=== PATIENT | male | born 1970 | race Caucasian/White ===

== ENCOUNTER 2024-10-24 09:24 | Emergency (ER) | payer OTHER, SELFPAY ==
[2024-10-24] VITALS (13 sets, daily range): BP systolic 113–150; BP diastolic 55–71; PULSE 56–100; RESP 13–23; TEMP 36.6–37.1; O2SAT 96–100; BMI 33.3
--- NOTE | 2024-10-24 09:41 | EKG_ITS ---
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
[2024-10-24 10:04] LABS: Add Manual Diff / Slide Review NO; Basophils Absolute Auto 0 /uL (0-100); Basophils Percent Auto 0.7 % (0-2); Eosinophils Absolute Auto 400 /uL (0-450); Eosinophils Percent Auto 8.7 % (2-4); Hematocrit 46.9 % (41-53); Hemoglobin 15.9 g/dL (13.5-17.5); Lymphocytes Absolute Auto 1400 /uL (1100-4500); Lymphocytes Percent Auto 28.8 % (25-40); Mean Corpuscular Volume 91.2 fL (80-100); Monocytes Absolute Auto 400 /uL (0-900); Monocytes Percent Auto 8.1 % (3-14); Neutrophils Absolute Auto 2700 /uL (1500-7000); Neutrophils Percent Auto 53.7 % (50-75); Platelet Count 288 X10^3/uL (150-400); Red Blood Cell Count 5.14 X10^6/uL (4.5-5.9); Red Cell Distribution Width 13.7 % (11.6-14.8)
[2024-10-24 10:14] LABS: Alanine Aminotransferase 38 IU/L (<50); Albumin 4.4 g/dL (3.5-5.0); Albumin Globulin Ratio 1.8 (1.0-2.8); Alkaline Phosphatase 72 U/L (38-126); Aspartate Aminotransferase 42 IU/L (17-59); BUN Creatinine Ratio 24.1 (6-22); Bilirubin Total 0.8 mg/dL (0.2-1.3); Blood Urea Nitrogen 19 mg/dL (9-20); Calcium 9.1 mg/dL (8.4-10.2); Carbon Dioxide 22 mmol/L (22-32); Chloride 105 mmol/L (98-107); Estimated Glomerular Filt Rate > 60 mL/min (>60); Globulin 2.5 g/dL (1.7-4.1); Glucose 121 mg/dL (70-100); HEMOLYSIS 42 (0-50); Lipase 145 U/L (23-300); Potassium 4.2 mmol/L (3.4-5.1); Sodium 138 mmol/L (137-145); Total Protein 6.9 g/dL (6.3-8.2)
--- NOTE | 2024-10-24 12:32 | ED.ABDPAIN ---
HPI - Abdominal Pain General Chief Complaint: Abdominal Pain Stated Complaint: Lower left stomach pain Time Seen by Provider: 10/24/24 12:32 Source: patient, RN notes reviewed and old records reviewed Mode of arrival: Ambulatory Limitations: no limitations History of Present Illness HPI narrative: 54-year-old male with left lower quadrant abdominal pain for 2 weeks has a history of diverticulitis. Patient notes he has had some lower left quadrant pain for about 2 weeks but states it has a little bit mildly to his left lateral flank region. He states it is more lateral than back. Patient denies fevers or chills. No nausea or vomiting. 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 He states since then he has been having regular bowel movements. No black or blood reported. Has a little bit of dysuria urinary symptoms. Denies any testicular pain. Has had diverticulitis before states it feels pretty similar. Notes he was not on any daily prescription meds. Has had prior hernia repair. No known drug allergies. Does chew tobacco daily, uses alcohol intermittently, no recreational drugs. Patient lives in [place] but it was working in the area currently. Related Data Previous Rx's Medication Instructions Recorded amoxicillin 875 mg-potassium 1 tab PO BID 10 days #20 tabs 10/24/24 clavulanate 125 mg tablet Allergies Allergy/AdvReac Type Severity Reaction Status Date / Time No Known Drug Allergies Allergy Verified 10/24/24 09:41 Review of Systems Review of Systems ROS Unobtainable: All systems reviewed & are unremarkable except as noted in HPI and below Patient History Social History Smoking Status: Unknown if ever smoked Smoking Status: Unknown if ever smoked tobacco type: smokeless tobacco Exam Narrative Exam Narrative: GENERAL: Alert and oriented x three, mild distress HEENT: Head normocephalic, atraumatic, EOMI, pupils reactive, face symmetric, moist mucous membranes NECK: Supple, full range of motion CARDIOVASCULAR: Regular rate and rhythm without murmurs, rubs or gallops. RESPIRATORY: Breath sounds equal bilaterally, no wheezes rales or rhonchi. ABDOMEN: Soft, mild left lower quadrant tenderness Normoactive bowel sounds all 4 quadrants. No guarding or rebound, rigidity, no palpable hernia or mass. : No CVA tenderness EXTREMITIES: Normal range of motion, no clubbing or edema. Neurovascularly intact NEUROLOGICAL: Cranial nerves II through XII grossly intact. Moving all extremities SKIN: Warm, dry, no petechiae, no rashes or lesions. Initial Vital Signs Initial Vital Signs: Vital Signs Temperature 98.7 F 10/24/24 09:25 Pulse Rate 74 10/24/24 09:25 Respiratory Rate 13 10/24/24 09:25 Blood Pressure 146/71 H 10/24/24 09:25 Pulse Oximetry 96 10/24/24 09:25 Oxygen Delivery Method Room Air 10/24/24 09:25 Course Orders Ordered: ED Orders 10/24/24 12:44 CT abdomen pelvis w con Stat Discontinued Medications Ondansetron HCl (Ondansetron 4 Mg/2 Ml Inj) 4 mg IV NOW PRN PRN Reason: Nausea And Vomiting Ondansetron HCl (Ondansetron 4 Mg Odt) 4 mg PO NOW PRN PRN Reason: Nausea And Vomiting Vital Signs Vital signs: Vital Signs - 8 hr 10/24/24 11:00 10/24/24 11:01 10/24/24 11:01 Temperature Pulse Rate 68 64 Respiratory Rate 23 Blood Pressure 133/64 Pulse Oximetry 97 96 Oxygen Delivery Method 10/24/24 11:30 10/24/24 11:30 10/24/24 12:00 Temperature Pulse Rate 63 65 Respiratory Rate 21 18 Blood Pressure 148/69 H Pulse Oximetry 98 98 Oxygen Delivery Method Room Air 10/24/24 12:00 10/24/24 12:30 10/24/24 12:30 Temperature Pulse Rate 67 Respiratory Rate 22 Blood Pressure 136/71 149/66 H Pulse Oximetry 97 Oxygen Delivery Method 10/24/24 12:48 10/24/24 12:48 10/24/24 13:43 Temperature 98 F Pulse Rate 56 L 100 H Respiratory Rate 21 20 Blood Pressure 150/69 H 140/63 Pulse Oximetry 98 100 Oxygen Delivery Method Room Air Room Air MDM - Abdominal Pain Lab Data 10/24/24 09:53 10/24/24 09:53 Labs: Lab Results 10/24/24 Range/Units 09:53 WBC 5.0 (4.5-11.0) X10^3/uL RBC 5.14 (4.5-5.9) X10^6/uL Hgb 15.9 (13.5-17.5) g/dL Hct 46.9 (41-53) % MCV 91.2 (80-100) fL MCH 31.0 (26-34) PG MCHC 34.0 (30-36) % RDW 13.7 (11.6-14.8) % Plt Count 288 (150-400) X10^3/uL Neut % (Auto) 53.7 (50-75) % Lymph % (Auto) 28.8 (25-40) % Cass % (Auto) 8.1 (3-14) % Eos % (Auto) 8.7 H (2-4) % Baso % (Auto) 0.7 (0-2) % Neut # (Auto) 2700 (7427-3862) /uL Lymph # (Auto) 1400 (2833-7568) /uL Cass # (Auto) 400 (0-900) /uL Eos # (Auto) 400 (0-450) /uL Baso # (Auto) 0 (0-100) /uL Sodium 138 (137-145) mmol/L Potassium 4.2 (3.4-5.1) mmol/L Chloride 105 (98-107) mmol/L Carbon Dioxide 22 (22-32) mmol/L BUN 19 (9-20) mg/dL Creatinine 0.79 (0.66-1.25) mg/dL Estimated GFR > 60 (>60) mL/min BUN/Creatinine Ratio 24.1 H (6-22) Glucose 121 H (70-100) mg/dL Calcium 9.1 (8.4-10.2) mg/dL Total Bilirubin 0.8 (0.2-1.3) mg/dL AST 42 (17-59) IU/L ALT 38 (<50) IU/L Alkaline Phosphatase 72 (38-126) U/L Total Protein 6.9 (6.3-8.2) g/dL Albumin 4.4 (3.5-5.0) g/dL Globulin 2.5 (1.7-4.1) g/dL Albumin/Globulin Ratio 1.8 (1.0-2.8) Lipase 145 (23-300) U/L Point of care testing: Urine Dip Bedside Urine Glucose Negative Bedside Urine Bilirubin - Negative Bedside Urine Ketone - Negative Urine Specific [place] 1.020 Bedside Urine Occult Blood - Negative Bedside Urine pH 6.0 Bedside Urine Protein - Negative Bedside Urine Urobilinogen - Negative Bedside Urine Nitrite - Negative Bedside Urine Leukocytes - Negative Esterase ECG Data Attestation: I personally reviewed and interpreted this ECG as follows: Interpretation: Sinus rhythm rate of 68 CO 148 QRS 88 QTC of 423, no acute ST changes. MDM Narrative Medical decision making narrative: EKG shows sinus rhythm Labs show normal CBC with normal white count hemoglobin platelets predominance of eosinophils, glucose is 121 otherwise normal electrolytes, BUN creatinine, calcium is 9.1 LFTs are normal. Urine does not show any blood or leuks or nitrates. CT abdomen pelvis imaging shows very mild diverticulitis involving distal descending colon/proximal sigmoid no signs of proof no abscess no free fluid no bowel obstruction normal appendix. No obstructing renal stones or hydro. Patient appears to have uncomplicated diverticulitis with 2 weeks of symptoms we will start on oral antibiotic with the return precautions. Patient feels comfortable with this plan. Discharge Plan Departure Patient Disposition: Home Clinical Impression: Diverticulitis Instructions: DI for Diverticulitis Activity Restrictions/Additional Instructions: Follow up for recheck if your symptoms are not improving. Your imaging does show diverticulitis. Please take oral antibiotics until completed. Prescription was sent to [facility] in [place]. Please return if you develop fevers, new or worsening abdominal back or flank pain, vomiting, black or bloody stools, lightheadedness or passing out or other new or concerning changes Prescriptions: New amoxicillin-pot clavulanate 875-125 mg tablet 1 tab PO BID 10 Days Qty: 20 0RF Stand Alone Forms: Patient Portal/API/Survey
--- NOTE | 2024-10-24 12:44 | DI.CT.S_ITS ---
PROCEDURE: CT ABDOMEN PELVIS W CON INDICATIONS: LLQ pain, mild L flank 2wks, hx diveriticulitis (?stone) TECHNIQUE: After the administration of intravenous contrast, axial sections acquired from the lung bases to the pubic symphysis. Coronal and sagittal reformats were performed. For radiation dose reduction, the following was used: automated exposure control, adjustment of mA and/or kV according to patient size. COMPARISON: None. FINDINGS: Image quality: Diagnostic. Lower Chest: No significant findings. ABDOMEN: Liver: No solid mass. Gallbladder: No radiopaque gallstones or wall thickening. Biliary ducts: No biliary dilation. Pancreas: No ductal dilation. Spleen: Size is within normal limits. Adrenal Glands: No adrenal nodules. Kidneys and Ureters: No hydronephrosis. No solid mass. No complex renal cystic lesion which requires follow up. Stomach and Bowel: There is no bowel obstruction. No gastric or small bowel wall thickening. Appendix is visualized in right lower quadrant and is within normal limits. Descending colon and sigmoid colon diverticulosis is seen with mild wall thickening and very mild pericolonic fat stranding involving distal descending colon/proximal sigmoid colon in left lower quadrant. No abscess collection. No extra luminal air is seen. Peritoneum: No abnormal intraperitoneal fluid. No free air. Ventral Wall: No significant ventral hernia. Abdominal Nodes: No retroperitoneal or mesenteric adenopathy by size criteria. Vessels: Aorta and inferior vena cava are normal in size. PELVIS: Pelvic Organs: Unremarkable. Bladder: No bladder wall thickening, accounting for underdistention. Pelvic Nodes: No enlarged lymph nodes. Miscellaneous: No inguinal hernias are seen. Bones: No aggressive osseous abnormality. Degenerative disc disease in lower lumbar spine is seen most notably at L4-5 and L5-S1 levels. IMPRESSION: 1. Finding is concerning for very mild diverticulitis involving distal descending colon/proximal sigmoid colon in left lower quadrant. No signs of perforation. No abscess collection. No free fluid or free air. 2. No bowel obstruction. Normal appendix. 3. No obstructing renal stones or hydronephrosis. Dictated by: Martin Hernandez M.D. on 10/24/2024 at 13:24 Approved by: Martin Hernandez M.D. on 10/24/2024 at 13:26
== END 2024-10-24 13:44 | disposition home or self-care (01) ==
PROVIDERS: Emergency Provider Emergency Medicine
DX: K57.92 Diverticulitis of intestine, part unspecified, without perforation or abscess without bleeding (principal)
CPT/HCPCS: 36415; 74177; 80053; 81003; 83690; 85025; 93005; 93010; 99283; 99284; Q9967